=== PATIENT | male | born 1970 | race Caucasian/White ===

== ENCOUNTER 2017-07-13 18:26 | Emergency (ER) | payer OTHER ==
[2017-07-13 18:30] VITALS: BMI 36.0
[2017-07-13] MEDS ORDERED: ZOFRAN TAB 4 MG PO PRN (18:48)
[2017-07-13] MEDS ORDERED: DILAUDID INJ IM ONE (18:48)
[2017-07-13] MEDS ORDERED: DILAUDID INJ ONE (18:51)
[2017-07-13] MEDS ORDERED: XYLOCAINE 1 % (PLAIN) ONE (19:27)
[2017-07-13] MEDS ORDERED: VIBRAMYCIN PO ONE ×2 (19:40→19:41)
--- NOTE | 2017-07-13 19:48 | DR.GENAD ---
HPI - PCP Primary Care Physician: WILBERT - Complaint/Symptoms Chief Complaint:: PT. C/O ABSCESS TO RECTAL AREA THAT BEGAN ON THURSDAY. HE STATES AREA IS DRAINING AND IS FEVERED AND THE SWELLING AND REDNESS HAS EXTENDED TO HIS BUTT CHEEK AND NEAR SCROTUM. - Source History Provided: Patient - Mode of Arrival Mode of Arrival: Ambulatory - Timing Onset of Chief Complaint: 07/10/17 PMH - PMH Past Medical History: Yes Past Medical History: Arthritis, Hypertension Past Surgical History: Yes Surgical History: Appendectomy - Family History History of Family Medical Conditions: No - Social History Does patient currently use any type of tobacco product: Yes Have you used tobacco products in the last 12 months: Yes Type of Tobacco Use: DIPS Does any household member use tobacco: No Alcohol Use: Heavy Do you use any recreational Drugs:: No Lives With: Spouse Lives Where: Home - infectious screening In the last 2 months have you had wt loss of >10#?: NO Have you had fever, night sweats or hemotysis?: No Have you traveled outside the country in the last 6 months?: No Isolation: Standard ROS - Review of Systems Eyes: No Symptoms Reported ENTM: No Symptoms Reported Respiratoy: No Symptoms Reported Cardiovascular: No Symptoms Reported Gastrointestinal/Abdominal: No Symptoms Reported Genitourinary: No Symptoms Reported Neurological: No Symptoms Reported Musculoskeletal: No Symptoms Reported Integumentary: Lesions, Lumps Hematologic/Lymphatic: No Symptoms Reported Endocrine: No Symptoms Reported Psychiatric: No Symptoms Reported All Other Systems: Reviewed and Negative PE - Vital Signs Vitals: Temperature 100.0 F Pulse Rate [Left] 85 Pulse Rate 94 Respiratory Rate 16 Blood Pressure [Right Arm] 137/71 Blood Pressure 160/104 O2 Sat by Pulse Oximetry 95 - General Limitations: No Limitations General Appearance: Alert, In No Apparent Distress - Head Head Exam: Normal Inspection - Eyes Eye exam: Normal Appearance - ENT ENT Exam: Normal Exam External Ear Exam: Normal External Inspection - Neck Neck Exam: Normal Inspection, Full ROM, Trachea Midline - Respiratory Respiratory Exam: Normal Lung Sounds Bilat Respiratory Exam: Bilateral Clear to Auscultation - Cardiovascular Cardiovascular Exam: Regular Rate, Normal Rhythm - Abdominal Exam Abdominal Exam: Normal Inspection, Normal Bowel Sounds, Soft - Extremities Extremities Exam: Normal Inspection - Neurologic Neurological Exam: Alert, Oriented X3 - Psychiatric Psychiatric Exam: Normal Affect, Normal Mood - Skin Skin Exam: Other (2x2cm abscess inferior rt buttocks w/surrounding erythema. Non pilonidal. Tender to palp) ROR - Labs Reviewed Laboratory: 07/13/17 18:48 Buttock Gram Stain - Final Procedures - Incision and Drainage Blade Size: 11 I & D Procedure: betadine prep, sterile drapes applied, gauze wick placed Progress: moderate pus expressed, lidocaine plain x 1ml used for anesthesia. Pt francine well , no complications - Discharge Plan Condition: Stable - Follow ups/Referrals Follow ups/Referrals: Jahaira ATKINS [Primary Care Provider] - 3 days - Instructions
[2017-07-13 20:08] VITALS: BP 133/79
== END 2017-07-13 20:00 | disposition home or self-care (01) ==
LOC: ER 18:39
PROC: 0D9P3ZZ Drainage of Rectum, Percutaneous Approach (ICD-10-PCS; principal; 2017-07-13)
DX: K61.1 Rectal abscess (principal); B95.62 Methicillin resistant Staphylococcus aureus infection as the cause of diseases classified elsewhere
CPT/HCPCS: 10060; 87070; 87075; 87077; 87186; 87205; 96372; 99282; J2001

== ENCOUNTER 2017-09-09 06:38 | Emergency (ER) | payer OTHER ==
[2017-09-09 06:49] VITALS: BP 140/88; BMI 37.5
[2017-09-09] MEDS ORDERED: TORADOL 60 MG VIAL IM ONE (07:01)
[2017-09-09] MEDS ORDERED: NORFLEX INJ IM ONE (07:01)
[2017-09-09] MEDS ORDERED: TORADOL 60 MG VIAL ONE (07:02)
[2017-09-09] MEDS ORDERED: NORFLEX INJ ONE (07:02)
[2017-09-09] MEDS ORDERED: DEMEROL INJ IM ONE (07:29)
[2017-09-09] MEDS ORDERED: PHENERGAN INJ 25 MG IM ONE (07:29)
[2017-09-09] MEDS ORDERED: DEMEROL INJ ONE (07:30)
[2017-09-09] MEDS ORDERED: PHENERGAN INJ 25 MG ONE (07:30)
--- NOTE | 2017-09-09 08:49 | DR.EXTPAIN ---
HPI - Time seen Time seen: 07:00 - PCP Primary Care Physician: Angelique ATKINS - HPI Comment HPI Comment: HISTORY BELOW. HISTORY ARTHRITIS. - Complaint/Symptoms Chief Complaint Doctor Comments: SEVERE LOWER BACK AND RT HIP PAIN RADIATING TO RIGHT THIGH. STARTED YESTERDAY. NO HISTORY OF TRAUMA. PATIENT SAID PAIN ASSOCIATED WITH SLIGHT WEAKNESS OF RLE. NON PRESCRIPTION MEDS Chief Complaint:: PT. C/O RIGHT HIP PAIN THAT RADIATES UP BACK WHICH BEGAN YESTERDAY AND HAS GOTTEN WORSE. PT. DENIES INJURY. PT. UNABLE TO BEAR WEIGHT ON RIGHT LEG AND UNABLE TO SIT STILL IN WHEELCHAIR DUE TO PAIN. - Nurses notes reviewed Nurses Notes Review: Yes - Source History Provided: Patient - Mode of arrival Mode of Arrival: Wheelchair - Timing Onset of Chief Complaint: 09/08/17 - Context History of: Arthritis - Associated signs and symptoms Associated Signs and Symptoms: Weakness, Pain PMH - PMH Past Medical History: Yes Past Medical History: Arthritis, Hypertension Past Surgical History: Yes Surgical History: Appendectomy - Family History History of Family Medical Conditions: No - Social History Does patient currently use any type of tobacco product: Yes Have you used tobacco products in the last 12 months: Yes Type of Tobacco Use: DIP Does any household member use tobacco: No Alcohol Use: None Do you use any recreational Drugs:: No Lives With: Spouse Lives Where: Home - infectious screening In the last 2 months have you had wt loss of >10#?: NO Have you had fever, night sweats or hemotysis?: No Have you traveled outside the country in the last 6 months?: No Isolation: Standard ROS - Review of Systems Constitutional: No Symptoms Reported Eyes: No Symptoms Reported ENTM: No Symptoms Reported Respiratoy: No Symptoms Reported Cardiovascular: No Symptoms Reported Gastrointestinal/Abdominal: No Symptoms Reported Genitourinary: No Symptoms Reported Neurological: Numbness, Other (WEAKNESS RT LEG.) Musculoskeletal: Muscle Pain Integumentary: No Symptoms Reported Hematologic/Lymphatic: No Symptoms Reported Endocrine: No Symptoms Reported All Other Systems: Reviewed and Negative PE - Vital Signs Vitals: Temperature 97.7 F Pulse Rate 98 Respiratory Rate 24 Blood Pressure [Right Arm] 133/79 Blood Pressure 140/88 O2 Sat by Pulse Oximetry 97 - General Limitations: No Limitations General Appearance: Alert - Head Head Exam: Normal Inspection - Eyes Eye exam: Normal Appearance - ENT ENT Exam: Normal External Ear Exam - Neck Neck Exam: Normal Inspection - Chest Chest Inspection: Symmetric Chest Wall Rise - Respiratory Respiratory Exam: Normal Lung Sounds Bilat Respiratory Exam: Bilateral Clear to Auscultation - Cardiovascular Cardiovascular Exam: Regular Rate, Normal Rhythm, Normal Heart Sounds - Abdominal Exam Abdominal Exam: Normal Inspection - Extremities Extremities Exam: Tenderness (RT HIP TENDERNESS.) - Back Back Exam: (R) CVA Tenderness - Neurological Neurological Exam: Alert, Oriented X3 - Psychiatric Psychiatric Exam: Anxious - Skin Skin Exam: Normal Color MDM - Differential Diagnosis Differential Diagnosis: Fracture (ATHRITIS), Neurovascular Injury, Sprain Course - Treatment Treatment: SEE ORDERS. IM PAIN MEDS TIMES 2 IN ED. - Education/Counseling Education/Counseling: Patient, Family, Education Educated On: Diagnosis, Needs for Follow Up ROR - XRAY XRAY Interpreted by: Radiologist XRAY Findings: REPORT DISCUSS WITH PATIENT. - Diagnosis Discharge Problem: Right hip pain Low back pain Qualifiers: Chronicity: acute Back pain laterality: bilateral Sciatica presence: with sciatica Sciatica laterality: sciatica of right side Qualified Code(s): M54.41 - Lumbago with sciatica, right side - Discharge Plan Disposition: 01 HOME, SELF-CARE Condition: Stable Prescriptions: Cyclobenzaprine HCl [FLEXERIL 10 MG *] 10 mg PO TID #60 tab Ibuprofen [MOTRIN TAB 800 MG *] 800 mg PO Q8H PRN #90 tab PRN Reason: Pain/Inflammation Tramadol HCl 50 mg PO Q6H #15 tablet - Follow ups/Referrals Follow ups/Referrals: Jahaira ATKINS [Primary Care Provider] - 2 days - Instructions Instructions: Hip Pain, Sciatica, [id number], Musculoskeletal Pain, Back Pain , Adult, [id number] Additional Instructions: RETURN TO ED IF WORSE.
--- NOTE | 2017-09-09 09:37 | RAD ---
HISTORY: Right hip pain, nontraumatic Study: Right hip AP, frog-leg, AP pelvis Comparison: None Findings: The visualized portions of the pelvic bones and SI joints are intact. The right hip joint is intact. No joint erosions are noted. No fracture, lytic, or blastic lesion is identified. No periarticular so ft tissue abnormality is identified. IMPRESSION: No significant abnormality identified Reported By:
== END 2017-09-09 10:07 | disposition home or self-care (01) ==
LOC: ER 06:38
DX: M25.551 Pain in right hip (principal); M54.41 Lumbago with sciatica, right side
CPT/HCPCS: 72131; 73501; 96372; 99282; J1885; J2175; J2360; J2550